=== PATIENT | female | born 1975 | race American Indian/Alaskan Native ===

== ENCOUNTER 2017-08-02 19:16 | Emergency (ER) | payer SELFPAY ==
[2017-08-02 20:42] LABS: Basophils % (Auto) 1.3 % (0.0-1.8); Eosinophils % (Auto) 3.5 % (0.0-4.3); Hematocrit 36.9 % (30.3-42.9); Hemoglobin 12.6 gm/dl (10.1-14.3); Mean Corpuscular HGB Conc 34 % (30-34); Mean Corpuscular Hemoglobin 28 pg (28-32); Mean Corpuscular Volume 82 fl (79-97); Platelet Count 327 K/mm3 (140-440); Red Cell Distribution Width 15.7 % (13.2-15.2); White Blood Count 7.1 K/mm3 (4.5-11.0)
[2017-08-02] MEDS ORDERED: PERCOCET 5/325 PO ONE (20:46)
[2017-08-02] MEDS ORDERED: BACTRIM DS PO ONE (20:46)
--- NOTE | 2017-08-02 20:50 | Cat Scan Report ---
FINAL REPORT EXAM: CT HEAD/BRAIN WO CON HISTORY: dizziness TECHNIQUE: CT of the head without contrast PRIORS: None. FINDINGS: Patchy areas of hypodensity are present throughout the supratentorial subcortical white matter. There is a small hypodense focus within the right internal capsule. Could be dilated perivascular space No acute intra or extra-axial hemorrhage identified. No evidence for midline shift or mass effect. The ventricles and sulci are within normal limits the paranasal sinuses visualized portions of the mastoids are unremarkable. IMPRESSION: Scattered white matter hypodensities as described above. This may be seen in number of etiologies including ischemic changes, vasculitis, demyelinating disease or other etiologies. Recommend followup MRI with and without contrast for further evaluation
[2017-08-02 21:01] LABS: Anion Gap 19 mmol/L; BUN/Creatinine Ratio 13.33; Blood Urea Nitrogen 16 mg/dL (7-17); Calcium 9.2 mg/dL (8.4-10.2); Carbon Dioxide 27 mmol/L (22-30); Chloride 95.9 mmol/L (98-107); Glucose 108 mg/dL (65-100); Sodium 139 mmol/L (137-145)
[2017-08-02 21:14] LABS: Potassium 2.7 mmol/L (3.6-5.0)
[2017-08-02] MEDS ORDERED: K-DUR PO ONE (21:16)
--- NOTE | 2017-08-02 21:26 | Emergency Department Report ---
ED Headache HPI - General Chief Complaint: Dizziness Stated Complaint: HEAD PAIN, KNOT ON NECK/HEAD Time Seen by Provider: 08/02/17 20:19 Source: patient Exam Limitations: no limitations - History of Present Illness Initial Comments: 41-year-old female with a past medical history of hypertension presents to the hospital complaining of dizziness when walking, scalp pain and headache and swelling lumps to neck. Patient states she's been compliant with her clonidine 0.3 mg twice a day, metoprolol 50 mg twice a day, and hydrochlorothiazide 50 mg daily. She took her medication today minutes prior to arrival and presents with significantly elevated blood pressure. She states that she seems to get anyone to her regimen after significant for 6 months and typically needs a medication adjustment after a 6 month period. 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 She has tenderness to the left parietal scalp area and several small tender raised lesions to the occipital area of the scalp times one week. Positive associated tender lymphadenopathy bilateral cervical area. Patient denies any new hair products and last had a relaxer one month ago. Patient presents with significantly elevated blood pressure but no complaints of chest pain or shortness of breath. Last week she reports seeing spots that have since resolved. Allergies/Adverse Reactions: Allergies latex Allergy (Verified 08/02/17 19:33) Unknown Penicillins Allergy (Verified 08/02/17 19:33) Unknown Home Medications: Ambulatory Orders HYDROcodone/APAP 5-325 [Nutrioso 5/325] 1 each PO Q6HR PRN #20 tablet 08/02/17 Hydrochlorothiazide [HCTZ] 50 mg PO QDAY 08/02/17 Ibuprofen [Motrin] 800 mg PO Q8HR PRN #30 tablet 08/02/17 Metoprolol [Lopressor TAB] 50 mg PO BID 08/02/17 Potassium Chloride [K-Dur] 20 meq PO BID #14 tab 08/02/17 Sulfamethoxazole/Trimethoprim [Bactrim DS TAB] 1 each PO BID #20 tablet cloNIDine [Catapres] 0.3 mg PO BID 08/02/17 ED Review of Systems ROS: Stated complaint: HEAD PAIN, KNOT ON NECK/HEAD Other details as noted in HPI Comment: All other systems reviewed and negative Other: Constitutional: No fevers chills Eyes: As per HPI ENT: No ear pain or throat pain Neck: Denies pain Respiratory: Denies cough wheezing shortness of breath Cardiovascular: Denies chest pain, palpitations, syncope GI: Denies abdominal pain, nausea, vomiting, diarrhea : Denies dysuria Musculoskeletal: Denies back pain Skin: As per HPI Neurologic: Denies numbness, weakness Psychiatric: Denies suicidal ideation, hallucinations ED Past Medical Hx - Past Medical History Previous Medical History?: Yes Hx Hypertension: Yes - Surgical History Past Surgical History?: No Additional Surgical History: hyst right knee replacement - Social History Smoking Status: Current Every Day Smoker Substance Use Type: Prescribed - Medications Home Medications: Home Medications Medication Instructions Recorded Confirmed Last Taken Type HYDROcodone/APAP 5-325 [Nutrioso 1 each PO Q6HR PRN #20 tablet 08/02/17 Unknown Rx 5/325] Hydrochlorothiazide [HCTZ] 50 mg PO QDAY 08/02/17 08/02/17 08/02/17 History Ibuprofen [Motrin] 800 mg PO Q8HR PRN #30 tablet 08/02/17 Unknown Rx Metoprolol [Lopressor TAB] 50 mg PO BID 08/02/17 08/02/17 08/02/17 History Potassium Chloride [K-Dur] 20 meq PO BID #14 tab 08/02/17 Unknown Rx Sulfamethoxazole/Trimethoprim 1 each PO BID #20 tablet 08/02/17 Unknown Rx [Bactrim DS TAB] cloNIDine [Catapres] 0.3 mg PO BID 08/02/17 08/02/17 08/02/17 History ED Physical Exam - General Limitations: No Limitations - Other Other exam information: General: No limitations, patient is alert in no acute distress Head exam: Atraumatic, tenderness to the left parietal area without visible lesion. Multiple small circular raised tender lesions approximately 3-4-6 total area of scalp. No erythema, warmth, or drainage Eyes exam: Normal appearance, pupils equal reactive to light, extraocular movements intact ENT: Moist mucous membrane, normal oropharynx Neck exam: Normal inspection, full range of motion, significant bilateral cervical lymphadenopathy Respiratory exam: Clear to auscultation bilateral, no wheezes, rales, crackles Cardiovascular: Normal rate and rhythm, normal heart sounds Abdomen: Soft, nondistended, and nontender, with normal bowel sounds, no rebound, or guarding Extremity: Full range of motion normal inspection no deformity Back: Normal Inspection, full range of motion, no tenderness Neurologic: Alert, oriented x3, cranial nerves intact, no motor or sensory deficit Psychiatric: normal affect, normal mood Skin: see head, fine papular rash to left jawline, non puritic ED Course Vital Signs 08/02/17 08/02/17 08/02/17 19:33 19:57 19:58 Temperature 98.4 F 98.1 F Pulse Rate 92 H 75 Respiratory 18 16 14 Rate Blood Pressure 249/170 Blood Pressure 198/129 [Left] O2 Sat by Pulse 99 99 Oximetry 08/02/17 08/02/17 08/02/17 21:19 21:35 22:29 Temperature Pulse Rate 71 71 73 Respiratory 14 14 Rate Blood Pressure 179/112 Blood Pressure 179/112 180/114 [Left] O2 Sat by Pulse Oximetry ED Medical Decision Making - Lab Data Result diagrams: 08/02/17 20:22 08/02/17 20:22 Lab Results 08/02/17 08/02/17 08/02/17 Range/Units 20:22 20:22 20:22 WBC 7.1 (4.5-11.0) K/mm3 RBC 4.50 (3.65-5.03) M/mm3 Hgb 12.6 (10.1-14.3) gm/dl Hct 36.9 (30.3-42.9) % MCV 82 (79-97) fl MCH 28 (28-32) pg MCHC 34 (30-34) % RDW 15.7 H (13.2-15.2) % Plt Count 327 (140-440) K/mm3 Lymph % (Auto) 29.8 (13.4-35.0) % Candler % (Auto) 8.9 H (0.0-7.3) % Eos % (Auto) 3.5 (0.0-4.3) % Baso % (Auto) 1.3 (0.0-1.8) % Lymph # 2.1 (1.2-5.4) K/mm3 Candler # 0.6 (0.0-0.8) K/mm3 Eos # 0.2 (0.0-0.4) K/mm3 Baso # 0.1 (0.0-0.1) K/mm3 Seg Neutrophils % 56.5 (40.0-70.0) % Seg Neutrophils # 4.0 (1.8-7.7) K/mm3 Sodium 139 (137-145) mmol/L Potassium 2.7 L* (3.6-5.0) mmol/L Chloride 95.9 L (98-107) mmol/L Carbon Dioxide 27 (22-30) mmol/L Anion Gap 19 mmol/L BUN 16 (7-17) mg/dL Creatinine 1.2 (0.7-1.2) mg/dL Estimated GFR 59 ml/min BUN/Creatinine Ratio 13.33 % Glucose 108 H (65-100) mg/dL Calcium 9.2 (8.4-10.2) mg/dL Magnesium 2.10 (1.7-2.3) mg/dL Troponin T < 0.010 (0.00-0.029) ng/mL - EKG Data -: EKG Interpreted by Me (sinus rhythm rate 85 LVH with re-pole, no STEMI) - EKG Data When compared to previous EKG there are: previous EKG unavailable - Radiology Data Radiology results: report reviewed CT head: Scattered white matter hypodensities. May be seen in numerous etiologies including ischemic changes, vasculitis, or demyelinating disease or other etiologies. Follow-up MRI recommended - Medical Decision Making Patient has apparently been placed on potassium but she ran out. She does not have a local M.D. We'll receive outpatient referral to medical orderly and primary care doctor. Despite taking her evening dose of BP medications early and receive additional clonidine 0.1 mg ED her blood pressure remains elevated. She states her diastolic pressure typically is greater than 100. She does have significant reduction compared to initial pressure and patient beers to follow-up for further BP management. Patient does have a scalp infection and will be given Bactrim here. Fungal infection is also a possibility. Outpatient follow-up with medical orderly she will be encouraged. She will be provided a copy of her CT result of the brain to follow up with PMD for further outpatient evaluation and MRI as necessary for incidental finding Meds received in the ED: Airam 0.1 mg, potassium 20 mEq by mouth, Bactrim DS 1 , and Percocet 5mg - Differential Diagnosis fungal infection, bacterial infection, insect bite, hypertensive emergency Critical Care Time: No Critical care attestation.: If time is entered above; I have spent that time in minutes in the direct care of this critically ill patient, excluding procedure time. ED Disposition Clinical Impression: Infection of scalp, Hypertension, uncontrolled, Hypokalemia, Cervical lymphadenopathy Disposition: DC-01 TO HOME OR SELFCARE Is pt being admited?: No Does the pt Need Aspirin: No Condition: Stable Instructions: Hypertension (ED), Abscess (ED), Hypokalemia (ED) Additional Instructions: Take the medication as prescribed. Return if symptoms worsen. Follow up with the primary care clinic or primary care doctor regarding blood pressure management and further evaluation of the CT findings. Follow-up with the medical orderly provided for further diagnosis of your scalp infection. Please know while you take a diuretic hydrochlorothiazide this may worsen over potassium level. It is very important to follow-up for repeat potassium levels especially while taking this medication. May also need to increase potassium in diet once the potassium prescription runs out and consult your primary care doctor for further potassium pill prescription if necessary Prescriptions: HYDROcodone/APAP 5-325 [Nutrioso 5/325] 1 each PO Q6HR PRN #20 tablet PRN Reason: Pain Ibuprofen [Motrin] 800 mg PO Q8HR PRN #30 tablet PRN Reason: Pain Potassium Chloride [K-Dur] 20 meq PO BID #14 tab Sulfamethoxazole/Trimethoprim [Bactrim DS TAB] 1 each PO BID #20 tablet Referrals: [facility] [Provider Group] - 3-5 Days NATALYA QUEZADA MD [Staff Physician] - 2-3 Days (Primary care doctor) amparo valentin MD [Other] - 3-5 Days (Caramel Candy Maker) Time of Disposition: 23:15
[2017-08-02] MEDS ORDERED: CATAPRES PO ONE (21:28)
[2017-08-02 23:21] VITALS: BP 154/103
== END 2017-08-02 23:34 | disposition home or self-care (01) ==
LOC: ED 19:16
DX: L08.9 Local infection of the skin and subcutaneous tissue, unspecified (principal); I10 Essential (primary) hypertension; E87.6 Hypokalemia; R59.1 Generalized enlarged lymph nodes; F17.200 Nicotine dependence, unspecified, uncomplicated; Z88.0 Allergy status to penicillin; Z91.040 Latex allergy status
CPT/HCPCS: 36415; 70450; 80048; 83735; 84484; 85025; 93005; 93010